=== PATIENT | female | born 1970 | race Caucasian/White ===

== ENCOUNTER 2017-02-19 19:15 | Emergency (ER) | payer MEDICAID, OTHER ==
[~2017-02-19] VITALS: Ht 172.7 cm; Wt 98.0 kg
[2017-02-19 19:31] VITALS: BP 107/68
[2017-02-19] MEDS ORDERED: VALS40TA2 PO (19:58)
[2017-02-19] MEDS ORDERED: ESTR0.3T PO (19:58)
[2017-02-19] MEDS ORDERED: HYDR200T PO (19:58)
[2017-02-19] MEDS ORDERED: AMLO10TA2 PO (19:58)
[2017-02-19] MEDS ORDERED: PRED5TAB PO (19:58)
[2017-02-19] MEDS ORDERED: HYDR12.53 PO (19:58)
[2017-02-19] MEDS ORDERED: ALBU0.63 NEB (19:58)
[2017-02-19] MEDS ORDERED: METO25TA35 PO (19:58)
[2017-02-19] MEDS ORDERED: BELI120V INJ (19:59)
[2017-02-19] MEDS ORDERED: TRAZ50TA18 PO (20:00)
[2017-02-19] MEDS ORDERED: BUSP5TAB2 PO (20:00)
[2017-02-19] MEDS ORDERED: HYDROcodone/APAP 5/325 TABLET PO ONE (21:00)
[2017-02-19] MEDS ORDERED: HYDROcodone/APAP 5/325 TABLET ONE (21:05)
[2017-02-19] MEDS ORDERED: SILVER SULF. CRM 1% , 25GM TP ONE (22:00)
== END 2017-02-19 22:02 | disposition home or self-care (01) ==
LOC: ED 21:56
DX: S39.012A Strain of muscle, fascia and tendon of lower back, initial encounter (principal); S29.012A Strain of muscle and tendon of back wall of thorax, initial encounter; S16.1XXA Strain of muscle, fascia and tendon at neck level, initial encounter; M50.321 Other cervical disc degeneration at C4-C5 level; M50.322 Other cervical disc degeneration at C5-C6 level; M50.323 Other cervical disc degeneration at C6-C7 level; M51.36 Other intervertebral disc degeneration, lumbar region; G89.11 Acute pain due to trauma; I10 Essential (primary) hypertension; W11.XXXA Fall on and from ladder, initial encounter; Y93.89 Activity, other specified; Y92.89 Other specified places as the place of occurrence of the external cause; Y99.8 Other external cause status
CPT/HCPCS: 70450; 72072; 72110; 72125; 99284